=== PATIENT | female | born 1955 | race Caucasian/White ===

== ENCOUNTER → 2016-08-10 | Outpatient (CLI) | payer BC ==
[~2016-08-10] MED LIST: ALLEGRA180 MG PO; ATIVAN 1 MG1 MG PO; ATIVAN1 MG PO; BETAPACE (GENER80 MG PO; COUMADIN ** IA5 MG PO; COZAAR25 MG PO; CPAP INH; CYMBALTA60 MG PO; DRISDOL 5050000 UNIT PO; EPIPEN0.3 MG IM; FLEXERIL10 MG PO; GLUCOPHAGE1000 MG PO; KLONOPIN1 MG PO; LEVOTHROID (S137 MCG PO; LEVOTHROID(SY175 MCG PO; MAG-OX-400(241400 MG PO; MAGNESIUM OXID500 MG PO; MECLIZINE HCL25 MG PO; OMEPRAZOLE40 MG PO; OXYGEN M-15 INH; PROVENTIL OR V6.7 GM INH; RYTHMOL SR325 MG PO; SINGULAIR10 MG PO; SOTALOL80 MG PO; SYMBICORT 80-10.2 GM INH; TOPROL XL 5050 MG PO; TOPROL XL25 MG PO; TYLENOL325 MG PO; VITAMIN B-1000 MCG/M SUB-Q
== END | disposition disaster alternative care site (69) ==
LOC: GRAD 07:15
DX: M47.812 Spondylosis without myelopathy or radiculopathy, cervical region (principal); M43.10 Spondylolisthesis, site unspecified; R29.898 Other symptoms and signs involving the musculoskeletal system

== ENCOUNTER → 2016-12-22 | Outpatient (CLI) | payer BC | LOC: GBCOE 07:46 | DX: Z12.31 Encounter for screening mammogram for malignant neoplasm of breast (principal) | CPT/HCPCS: G0202 ==